=== PATIENT | female | born 1965 | race Caucasian/White ===

== ENCOUNTER 2020-06-19 18:54 | Emergency (ER) | payer SELFPAY ==
[~2020-06-19] VITALS: Ht 167.6 cm; Wt 63.6 kg
[2020-06-19 20:34] VITALS: BP 157/90
== END 2020-06-19 22:02 | disposition left against medical advice (07) ==
LOC: EMS 18:57
DX: L29.9 Pruritus, unspecified (principal); Z53.21 Procedure and treatment not carried out due to patient leaving prior to being seen by health care provider

== ENCOUNTER 2020-11-04 20:58 | Emergency (ER) | payer SELFPAY ==
[~2020-11-04] VITALS: Ht 170.2 cm; Wt 59.1 kg
[2020-11-04 21:04] VITALS: BP 127/76
== END 2020-11-04 21:54 | disposition left against medical advice (07) ==
LOC: EMS 20:59
DX: M79.89 Other specified soft tissue disorders (principal); Z53.21 Procedure and treatment not carried out due to patient leaving prior to being seen by health care provider

== ENCOUNTER 2021-07-22 08:52 | Emergency (ER) | payer MEDICAID ==
[~2021-07-22] VITALS: Ht 170.2 cm; Wt 60.0 kg
[2021-07-22] MEDS ORDERED: LORazepam 2 MG/ML VIAL ONE (09:09)
[2021-07-22 09:26] LABS: BASOPHILS % (AUTO) 0.3 % (0.0-2.0); EOSINOPHILS % (AUTO) 0.3 % (1.0-6.0); HEMATOCRIT 43.2 % (36-46); HEMOGLOBIN 13.8 g/dL (12.0-16.0); LYMPHOCYTES # (AUTO) 1.8 K/uL (1.0-4.8); LYMPHOCYTES % (AUTO) 14.1 % (22.0-44.0); MEAN CORPUSCULAR HEMOGLOBIN 26.3 pg (26.0-34.0); MEAN CORPUSCULAR VOLUME 82 fL (80-100); MONOCYTES # (AUTO) 0.4 K/uL (0.1-1.0); MONOCYTES % (AUTO) 3.2 % (2.0-9.0); NEUTROPHILS # (AUTO) 10.6 K/uL (1.8-7.7); NEUTROPHILS % (AUTO) 82.1 % (40.0-70.0); PLATELET COUNT (AUTO) 659 K/uL (150-450); RED BLOOD CELL COUNT(AUTO) 5.25 MIL/uL (4.00-5.20); RED CELL DISTRIBUTION WIDTH 15.4 % (11.5-14.5)
[2021-07-22 09:35] LABS: CALCIUM, TOTAL 9.6 mg/dL (8.8-10.5); CREATININE 1.49 mg/dL (0.60-1.30); POTASSIUM 3.4 mmol/L (3.5-5.1)
[2021-07-22 09:41] LABS: ALBUMIN 3.2 g/dL (3.4-5.0); BILIRUBIN,TOTAL 0.5 mg/dL (0.1-1.0); TOTAL PROTEIN, SERUM 9.6 g/dL (6.4-8.2)
[2021-07-22] MEDS ORDERED: LORazepam 2 MG/ML VIAL IM ONE (09:45)
[2021-07-22] MEDS ORDERED: SODIUM CHLORIDE 0.9% 1,000 ML IV ONE (11:45)
[2021-07-22 12:14] VITALS: BP 154/69
== END 2021-07-22 13:09 | disposition home or self-care (01) ==
LOC: EMS 08:52
DX: R56.9 Unspecified convulsions (principal); F11.90 Opioid use, unspecified, uncomplicated; F12.90 Cannabis use, unspecified, uncomplicated; F17.210 Nicotine dependence, cigarettes, uncomplicated
CPT/HCPCS: 36415; 80053; 85025; 96360; 96372; 99283; J2060; J7030

== ENCOUNTER 2024-08-25 12:06 | Emergency (ER) | payer OTHER ==
[~2024-08-25] VITALS: Ht 152.4 cm; Wt 100.0 kg
[2024-08-25 12:36] VITALS: BP 114/86; PULSE 120; RESP 14; TEMP 98.1; O2SAT 96
[2024-08-25 12:58] LABS: BASOPHILS % (AUTO) 0.1 % (0.0-2.0); EOSINOPHILS % (AUTO) 0.1 % (1.0-6.0); HEMATOCRIT 35.7 % (36-46); HEMOGLOBIN 11.8 g/dL (12.0-16.0); LYMPHOCYTES # (AUTO) 0.7 K/uL (1.0-4.8); MEAN CORPUSCULAR HEMOGLOBIN 29.1 pg (26.0-34.0); MEAN CORPUSCULAR HGB CONC 33.1 G/dL (31.0-37.0); MEAN CORPUSCULAR VOLUME 88 fL (80-100); MONOCYTES # (AUTO) 0.6 K/uL (0.1-1.0); MONOCYTES % (AUTO) 2.7 % (2.0-9.0); NEUTROPHILS # (AUTO) 21.4 K/uL (1.8-7.7); PLATELET COUNT (AUTO) 570 K/uL (150-450); RED BLOOD CELL COUNT(AUTO) 4.06 MIL/uL (4.00-5.20); RED CELL DISTRIBUTION WIDTH 14.3 % (11.5-14.5); WHITE BLOOD COUNT (AUTO) 22.7 K/uL (4.5-11.0)
[2024-08-25 13:01] LABS: NEUTROPHILS % (AUTO) 94.1 % (40.0-70.0)
[2024-08-25 13:05] LABS: ANION GAP 9 mmol/L (8-16); CALCIUM, TOTAL 9.6 mg/dL (8.8-10.5); CARBON DIOXIDE 28 mmol/L (22-29); CHLORIDE 100 mmol/L (98-107); CREATININE 1.27 mg/dL (0.60-1.30); GLOMERULAR FILTR. RATE CALC 43 mL/min (>60); GLUCOSE,RANDOM 90 mg/dL (70-110); POTASSIUM 3.7 mmol/L (3.5-5.1); SODIUM SERUM 137 mmol/L (136-145); UREA NITROGEN, BLOOD 20 mg/dL (7-18)
[2024-08-25] MEDS: SODIUM CHLORIDE 0.9% 2,100 ML IV ONE (13:10)
[2024-08-25] MEDS: VANCOMYCIN 1.5 GM/WATER(PEG) 300 ML IV ONE (13:11)
[2024-08-25 13:13] LABS: ALCOHOL, BLOOD (SERUM) < 3 mg/dL (0-10)
[2024-08-25] MEDS: 0.9% SODIUM CHLORIDE 10 ML SYRINGE IVP PRN (13:13)
[2024-08-25 13:14] LABS: LACTIC ACID 1.3 mmol/L (0.4-2.0)
[2024-08-25 13:15] LABS: LIPASE 21 U/L (16-77); TROPONIN I-HIGH SENSITIVITY 10 ng/L (<51)
[2024-08-25 13:25] LABS: PROTHROMBIN TIME 10.5 SEC (9.4-11.6)
== END 2024-08-25 14:32 | disposition left against medical advice (07) ==
LOC: EMS 12:22
DX: L03.116 Cellulitis of left lower limb (principal); L03.115 Cellulitis of right lower limb; R41.82 Altered mental status, unspecified; A41.9 Sepsis, unspecified organism; F19.10 Other psychoactive substance abuse, uncomplicated; F12.90 Cannabis use, unspecified, uncomplicated; F17.290 Nicotine dependence, other tobacco product, uncomplicated; Z59.00 Homelessness unspecified
CPT/HCPCS: 99291; 80048; 83605; 83690; 83735; 84484; 85025; 85610; 87040; 36415; 71045; 93005; 84145; G0480; J3490

== ENCOUNTER 2024-08-25 16:32 | Emergency (ER) | payer OTHER ==
[~2024-08-25] VITALS: Ht 160 cm; Wt 50.0 kg
[2024-08-25 16:41] VITALS: BP 126/72; PULSE 77; RESP 18; TEMP 97.7; O2SAT 98
== END 2024-08-25 18:36 | disposition left against medical advice (07) ==
LOC: EMS 16:32
DX: F19.10 Other psychoactive substance abuse, uncomplicated (principal); F12.90 Cannabis use, unspecified, uncomplicated; F17.290 Nicotine dependence, other tobacco product, uncomplicated; Z59.00 Homelessness unspecified
CPT/HCPCS: 99281; Z7502